=== PATIENT | male | born 1950 | race Caucasian/White ===

== ENCOUNTER 2024-07-30 15:45 | Emergency (ER) | payer OTHER, SELFPAY ==
--- NOTE | 2024-07-30 16:45 | ED.GENMED ---
History of Present Illness
General
Chief Complaint: Skin Problem
Source: patient
Time Seen by Provider: 07/30/24 16:02
History of Present Illness
History of Present Illness:
This patient is a very pleasant 73-year-old male was using a saw and accidentally cut his left index finger on the dorsal aspect. This happened just prior to presentation. He is not up-to-date on his tetanus. He denies numbness, tingling,
suspected foreign body, or other complaints. He denies any other injury
Past History
Past History
ED Past Medical History: Other (BPH, chronic fatigue); Negative HTN
ED Past Surgical History: Tonsilectomy
Social History
Tobacco: Non-smoker
Alcohol: Occasional
Drug: None
Personal: Single
Living: alone
Employment: Employed
Family History
Family History: Other (Noncontributory)
Phy Exam
Physical Exam
Physical Exam:
GENERAL: Alert , in no apparent distress
EYE pupils equal and round
NECK: Supple
ENT: mmm.
CARDIAC: Regular rate and rhythm .
LUNGS: Clear breath sounds bilaterally, no acute respiratory distress, no wheezes/rales/rhonchi
NEUROLOGICAL: Alert and oriented, no focal neuro deficits
SKIN: Warm and dry, There is a 6 cm linear laceration noted dorsal aspect L index finger to level of bone, ?partial extension tendon injury, no joint involvement noted (wound epxlored through from before and s/p dig block). Min bleed. No nail
injury. FROM, incuding extension
MUSCULOSKELETAL: No edema, well perfused.
PSYCH: Normal and appropriate interaction.
Course
Orders/Labs/Results
Orders:
Orders
07/30/24 15:49
CR Finger(s)/thumb Min 2 Vw Lt Urgent
Comment:
Reason For Exam: trauma
Indicate Which Finger:: Index Finger
07/30/24 16:45
Cephalexin Monohydrate [Keflex] 500 mg PO NOW STA
Tetanus/Diphth/Acelpertussis [Adacel] 0.5 ml IM .ONCE ONE
Vital Signs
Initial and Last Documented VS:
Initial Vital Signs
Temp Pulse Resp BP Pulse Ox
98.4 F 62 16 152/83 98
07/30/24 15:47 07/30/24 15:47 07/30/24 15:47 07/30/24 15:47 07/30/24 15:47
Last Documented Vital Signs
Temp Pulse Resp BP Pulse Ox
98.4 F 62 16 152/83 98
07/30/24 15:47 07/30/24 15:47 07/30/24 15:47 07/30/24 15:47 07/30/24 15:47
Procedures
Laceration Closure
Finger:
Status of Wound: clean
Size of Wound in cm: 6
Description of Wound Edges: sharp
Preparation: cleaned with saline
Anesthesia: 1% Lidocaine and Digital-Regional
Revision/Debridement: routine- no revision
Wound exploration: explored to base- no FB
Type of Closure: single layer closure
Skin Closure Material: 5-0 nylon
Number of sutures: 14
Update Note
Update Note:
Patient presents to the Emergency Department with __finger laceration
Number and Complexity of Problems Addressed at the Encounter
� Chronic conditions affecting care:
� Acute Exacerbation and/or Progression of Chronic Illness:
� Differential Diagnosis includes: But not limited to laceration, tendon injury, bony injury, etc. etc.
Amount and/or Complexity of Data to be Reviewed and Analyzed
� I performed an independent evaluation of and my interpretation is:
EKG:
CT:
Xrays:There is a soft tissue swelling along the mid aspect of the index finger with a small fracture along the base of the middle phalanx. There is additional cortical defect along the mid aspect of the proximal phalanx
consistent with nondisplaced fracture.
Laboratory Studies:
Other:
� Review of other/old records reveals:
� Clinical information was obtained by an independent historian:
� Prescriptions/Medications Considered but not given:
� Further testing considered but not performed:
Risk of Complications and/or Morbidity or Mortality of Patient Management
� Social determinants of health affecting care:
� Discussion with other providers (PCP, Hospitalists, Consultants, etc):
� Escalation of care including admission/observation vs risk of discharge considered: Patient aware of suspected fracture, possible tendon injury, importance of wound care, and importance of close follow-up with hand. He has
seen Dr. Suarez in the past and will be referred there. Patient will be started on antibiotics, wound was carefully cleaned. Tetanus will be updated here. Patient placed in full extension with a splint and wound dressed. Case discussed with
Stefanie, photos of open wound sent to him, agrees with plan and assures me patient will be seen within the next 48 hours
ED Attending Note
-
Portions of this chart may have been created with voice recognition software.� Occasional wrong word or��sound alike� substitutions may have occurred due to the inherent limitations of voice recognition software.
Discharge Plan
Departure
Patient Disposition: Home (Routine Discharge)
Date of Disposition: 07/30/24
Time of Disposition: 17:04
Patient with high blood pressure during this ER visit?: Yes
Discharge Problem:
Laceration, Finger fracture, possible tendon injury
Instructions: Tendon Laceration, Stitches - ED discharge instructions, BLOOD PRESSURE, Laceration
Prescriptions:
New
cephalexin 500 mg capsule
500 mg PO QID 7 Days Qty: 28 0RF
acetaminophen-codeine 300-30 mg tablet
1 tab PO BID PRN (Reason: Pain) Qty: 7 0RF
No Action
ketorolac 10 MG tablet
10 mg PO Q6HPRN PRN (Reason: pain) Qty: 8 0RF
Referrals:
Aftab Suarez MD [Active] - Tomorrow
Addy Varma MD [COVERAGE] - Tomorrow
Activity Restrictions/Additional Instructions:
IF YOU DEVELOP REDNESS/WARMTH/DRAINAGE/FEVER/INCREASING PAIN, OR OTHER WORRISOME SIGNS, GO TO THE ER IMMEDIATELY! YOU HAVE A SMALL FRACTURE IN YOUR FINGER WELL, WHICH ALSO REQUIRES ATTENTION. SEE DR SUAREZ OR HIS ASSOCIATE THIS WEEK.
Interventions
Interventions:
*Risk Screen - Suicide Last Done: 07/30/24 15:47
*General Assessment Last Done: 07/30/24 15:47
*Neglect/Abuse Screening Last Done: 07/30/24 15:47
ED-Skin Assessment Last Done: 07/30/24 16:51
Discharge Date and Time
Print Language: SAMOAN
[2024-07-30] MEDS: KEFLEX 500 MG PO (16:55)
[2024-07-30] MEDS: ADACEL 0.5 ML IM (16:57)
== END 2024-07-30 17:15 | disposition home or self-care (01) ==
LOC: EMR 15:45
PROVIDERS: EMERGENCY PHYSICIAN Emergency Medicine; FAMILY PHYSICIAN Family Medicine
DX: S61.211A Laceration without foreign body of left index finger without damage to nail, initial encounter (principal); W27.8XXA Contact with other nonpowered hand tool, initial encounter; Z23 Encounter for immunization; N40.0 Benign prostatic hyperplasia without lower urinary tract symptoms
CPT/HCPCS: 99283; 12002; 90471; 73140; 90715

== ENCOUNTER 2025-01-21 16:40 | Emergency (ER) | payer OTHER, SELFPAY ==
[2025-01-21 16:43] VITALS: BP 129/67
[2025-01-21 17:04] LABS: Hematocrit 42.8 % (39.0-52.0); Hemoglobin 15.3 g/dL (13.0-18.0); Mean Corp Hgb Conc. 35.7 g/dL (33.0-37.0); Mean Corpuscular Volume 86.6 fL (80.0-94.0); Nucleated Red Blood Cells % 0 % (-); Platelet Count 266 10^3/uL (130-400); Red Cell Dist. Width 12.6 % (11.5-14.5)
[2025-01-21 17:24] LABS: ALT (SGPT) 20 U/L (0-50); AST (SGOT) 24 U/L (17-59); Albumin 4.5 g/dl (3.5-5.0); Alkaline Phosphatase 106 U/L (38-126); Blood Urea Nitrogen 20 mg/dl (9-20); Calcium 9.5 mg/dl (8.4-10.2); Carbon Dioxide 21 mmol/L (22-30); Chloride 108 mmol/L (98-107); Glucose 133 mg/dl (70-99); Lipase 154 U/L (23-300); Potassium 4.1 mmol/L (3.5-5.1); Sodium 138 mmol/L (135-145); Total Protein 7.5 g/dl (6.3-8.2); eGFR > 60.00
[2025-01-21] MEDS: TORADOL 15 MG IV (17:48)
[2025-01-21] MEDS: ZOFRAN 4 MG IV (17:49)
[2025-01-21] MEDS: NSS 1000 IV (18:05)
[2025-01-21 18:07] VITALS: BP 132/88
[2025-01-21] MEDS: DILAUDID 0.5 MG IV ×2 (18:12→19:37)
--- NOTE | 2025-01-21 18:40 | ED.GENMED ---
History of Present Illness
General
Chief Complaint: Flank Pain
Source: patient
Exam Limitations: none
Time Seen by Provider: 01/21/25 17:32
Nursing documentation reviewed up to this point in time: agreed with
History of Present Illness
History of Present Illness:
Patient is a healthy 74-year-old male who presents to the emergency department with acute onset left abdominal discomfort about 1.5 hours prior to arrival. Initially�pain seemed to radiate up to his left lower back however he states it is now
located only in his left lower quadrant. He denies any radiation into his groin. He is because the pain is incredibly sharp and stabbing in nature. He has had multiple episodes of nausea and vomiting.
He has not urinated since arriving to the emergency department however earlier today did not notice any dysuria or hematuria. No associated fever, chills, chest pain, or shortness of breath.
Patient believes that he may be passing a kidney stone. He had one many years ago on the right side which felt similar.
No other concerns today.
Past History
Past History
ED Past Medical History: Other (BPH, chronic fatigue); Negative HTN
ED Past Surgical History: Tonsilectomy
Social History
Tobacco: Non-smoker
Alcohol: Occasional
Drug: None
Personal: Single
Living: alone
Employment: Employed
Family History
Family History: Other (Noncontributory)
Review of Systems
Review of Systems
Allergies reviewed?: Yes
All Other Systems: ROS reviewed and negative except as documented in HPI and ROS
Phy Exam
Physical Exam
Physical Exam:
Vitals: Patient's vital signs are stable. Afebrile
General: Patient is moaning and in significant distress on initial evaluation.
Skin: Warm and dry, no rashes or lesions
Head: Normocephalic, atraumatic
Eyes: Sclera nonicteric.
Throat: Protecting airway
Neck: Normal ROM, no cervical spine tenderness, no meningismus
Cardiac: Regular rate and rhythm, no murmurs.
Pulm: Normal respiratory effort, lungs clear
Abdomen: Abdomen soft. Mild tenderness in left lower quadrant. No rebound tenderness or guarding. No CVA tenderness. No rash
Extremities: No evidence of cyanosis or edema
Neuro: AAOx3. Grossly intact.
Psychiatric: Normal affect.
Course
Orders/Labs/Results
Orders:
Orders
01/21/25 16:51
Complete Blood Count/With Diff Urgent
Comprehensive Metabolic Panel Urgent
Lipase Urgent
01/21/25 17:39
Abdomen/Pelvis wo Contrast CT [CT Abd/pelvis Wo Iv Cont] Urgent
Comment:
Reason For Exam: left inguinal pain
0.9% Sodium Chloride 1000 ml [Nss] 1,000 ml IV BOLUS
Ketorolac [Toradol] 15 mg IV NOW STA
Ondansetron Injectable [Zofran] 4 mg IV NOW STA
01/21/25 18:10
HYDROmorphone [Dilaudid] 0.5 mg IV NOW STA
01/21/25 19:14
Urinalysis Reflex To Culture Urgent
Date Specimen was Collected: 01/21/25
Time Specimen was Collected: 16:50
Urine Microscopic Reflex Cult Urgent
Urine Culture Urgent
HENRY Source: U
Specimen Description:
Date Specimen was Collected: 01/21/25
Time Specimen was Collected: 16:50
01/21/25 19:28
HYDROmorphone [Dilaudid] 0.5 mg IV NOW STA
01/21/25 21:51
Oxycodone [Roxicodone] 5 mg PO NOW STA
Abnormal Lab Results
01/21/25 01/21/25
16:51 19:14
Absolute Monos (auto) 0.8 H 10^3/uL
(0.1-0.6)
Chloride 108 H mmol/L
(98-107)
Carbon Dioxide 21 L mmol/L
(22-30)
Glucose 133 H mg/dl
(70-99)
Urine Ketones 2+ A
(Negative)
Ur Occult Blood Reflex 4+ A
(Negative)
Leukocyte Esterase Rfl 1+ A
(Negative)
Urine RBC 80-90 A /HPF
(0-2)
Urine Bacteria (Reflex) Many A
(Negative)
Urine Albumin (Reflex) 2+ A
(Neg - Trace)
01/21/25 16:51
01/21/25 16:51
Vital Signs
Initial and Last Documented VS:
Initial Vital Signs
Temp Pulse Resp BP Pulse Ox
97.9 F 57 18 129/67 100
01/21/25 16:43 01/21/25 16:43 01/21/25 16:43 01/21/25 16:43 01/21/25 16:43
Last Documented Vital Signs
Temp Pulse Resp BP Pulse Ox
97.7 F 57 18 105/76 96
01/21/25 18:58 01/21/25 16:43 01/21/25 16:43 01/21/25 21:00 01/21/25 21:01
MDM/Problems Addressed
Differential Diagnosis Includes:
Not limited to: Renal colic, pyelonephritis, muscle strain/spasm, diverticulitis, etc.
MDM/Problems Addressed:
74-year-old male with acute onset left abdominal pain associated with nausea, vomiting. No chest pain, shortness of breath, fever, or urinary symptoms. Vitals and physical exam as above.
Clinical picture suspicious for likely renal colic. Do not suspect vascular process.
ED plan: labs, UA, CT scan abdomen/pelvis without contrast. Will treat pain, give IV fluids, Zofran, and reassess.
Update: labs reviewed without any clinically significant abnormalities. No leukocytosis. Chemistry unremarkable. CT scan reveals a 6 mm stone in left distal ureter with mild hydro. He has required a few dose of IV pain medication however at this
time is much more comfortable.
UA without findings of infection.
I discussed case with urology production cost estimator, Dr. Robins. I reviewed UA with urology who agrees with plan for discharge home with trial of passage of stone outpatient. No indication for antibiotics at this time.
Strict return precaution discussed including infectious symptoms, intractable pain. He will follow up with urology outpatient. Patient comfortable w/plan.
Chronic conditions affecting care:
N/A
Acute Exacerbation and/or Progression of Chronic Illness:
N/A
*Radiology
Radiology exam reviewed: radiology read reviewed
*Pulse Oximetry
SaO2: 100
Oxygen Mode of Delivery: Room air
Patient hypoxic: no
*EKG
Interpreted by ED Provider?: NA
*Pile Driver Interpretation
Rate: Pile Driver- N/A
*Critical Care Note
Total Time (30-74mins, 75-104mins- exclusive of procedures): Not Applicable
ED Attending Note
-
Portions of this chart may have been created with voice recognition software.� Occasional wrong word or��sound alike� substitutions may have occurred due to the inherent limitations of voice recognition software.
Discharge Plan
Departure
Patient Disposition: Home (Routine Discharge)
Date of Disposition: 01/21/25
Time of Disposition: 21:30
Patient with high blood pressure during this ER visit?: No
Condition: Good
Discharge Problem:
Calculus of distal left ureter
Instructions: Kidney Stones (DC)
Prescriptions:
New
oxycodone 5 mg tablet
5 mg PO Q6H PRN (Reason: Pain) Qty: 7 0RF
ondansetron 4 mg tablet,disintegrating
4 mg PO Q8H PRN (Reason: nausea and vomiting) Qty: 7 0RF
No Action
ketorolac 10 MG tablet
10 mg PO Q6HPRN PRN (Reason: pain) Qty: 8 0RF
cephalexin 500 mg capsule
500 mg PO QID 7 Days Qty: 28 0RF
acetaminophen-codeine 300-30 mg tablet
1 tab PO BID PRN (Reason: Pain) Qty: 7 0RF
Referrals:
Mark Horne MD [Family Provider, Family Practice]
Celestine Robins MD [Active, Urology] - Next open appointment
Activity Restrictions/Additional Instructions:
RETURN TO THE EMERGENCY DEPARTMENT ANY FEVER, CHILLS, INTRACTABLE PAIN, INTRACTABLE NAUSEA/VOMITING, INABILITY TO URINATE, WORSENING IN CURRENT SYMPTOMS, OR ANY OTHER CONCERNS
- As discussed�your CT scan showed a 6 mm stone in your left distal ureter.
- You can take 600 mg of ibuprofen every 6-8 hours as needed for pain. For intractable pain�you can take oxycodone. Be aware that this may cause drowsiness you should not take prior to driving.
- It is important you stay well-hydrated. Continue to take your Flomax daily. You should strain your urine.
- Follow-up with urology for further evaluation/management to ensure that your symptoms are improving
Monitor your symptoms closely and return to the emergency department with any acute worsening/new symptoms or any signs of infection
Interventions
Interventions:
*Risk Screen - Suicide Last Done: 01/21/25 16:46
*General Assessment Last Done: 01/21/25 19:30
*Neglect/Abuse Screening Last Done: 01/21/25 16:46
*Nursing Disposition Last Done: 01/21/25 21:33
AG-Syfxga-Sxscvonsyr Assessment Last Done: 01/21/25 18:16
ED-Male Genitourinary Assessment Last Done: 01/21/25 18:16
Discharge Date and Time
Discharge Date/Time: 01/21/25 21:33
Print Language: [place] CITIZ[place]
[2025-01-21 19:24] LABS: Urine Character Clear (Clear)
[2025-01-21 19:30] LABS: Urine Squamous Cell 0-2 /LPF (Few)
[2025-01-21 19:31] LABS: Urine Red Blood Cell 80-90 /HPF (0-2)
[2025-01-21 19:35] VITALS: BP 137/86
[2025-01-21 20:00] VITALS: BP 127/72
[2025-01-21 21:00] VITALS: BP 105/76
[2025-01-21] MEDS: ROXICODONE 5 MG PO (22:08)
== END 2025-01-21 21:33 | disposition home or self-care (01) ==
LOC: EMR 16:40
PROVIDERS: EMERGENCY PHYSICIAN Student in an Organized Health Care Education/Training Program; FAMILY PHYSICIAN Family Medicine
DX: N13.2 Hydronephrosis with renal and ureteral calculous obstruction (principal); N40.0 Benign prostatic hyperplasia without lower urinary tract symptoms; R11.2 Nausea with vomiting, unspecified
CPT/HCPCS: 96374; 96375; 96376; 96361; 99284; 74176; 80053; 81003; 81015; 83690; 85025; 87086

== ENCOUNTER 2025-01-26 21:56 | Emergency (ER) | payer OTHER, SELFPAY ==
[2025-01-26 21:59] VITALS: BP 138/73
[2025-01-26 22:23] VITALS: BP 130/71
[2025-01-26 22:25] VITALS: BMI 23.1
--- NOTE | 2025-01-26 22:42 | ED.GENMED ---
History of Present Illness
General
Chief Complaint: Flank Pain
Source: patient
Time Seen by Provider: 01/26/25 22:29
History of Present Illness
History of Present Illness:
74-year-old male presents to the emergency room complaining of left flank pain. Patient was seen here in the emergency room 5 days ago for abdominal pain and found to have a distal left ureteral stone that was 6 mm in size. Patient has followed up
with urology since then. The decision was made to allow time for the stone to pass without intervention. Patient states the pain he was experiencing tonight was more significant in the back than what he had before. No fever or chills. No
hematuria. He does not believe he passed the stone though he has seen some tiny particles that he thought were part of the stone. Patient took such 100 mg of ibuprofen at 4 PM with mild relief of his discomfort but the pain is coming back now.
Past History
Past History
ED Past Medical History: Other (BPH, chronic fatigue); Negative HTN
ED Past Surgical History: Tonsilectomy
Social History
Tobacco: Non-smoker
Alcohol: Occasional
Drug: None
Personal: Single
Living: alone
Employment: Employed
Family History
Family History: Other (Noncontributory)
Phy Exam
Physical Exam
Physical Exam:
General: Awake, Alert, Oriented X3. No acute distress.
Vitals: unremarkable
Head: Atraumatic
Eyes: Pupils equal, EOMI
Throat: Airway intact, no exudates
Neck: Trachea midline
Lungs: Clear and equal b/l
Heart: Regular rate, no murmurs
Abd: Soft, Nontender, No pulsatile mass
Back: Mild left CVA tenderness to percussion
Neuro: Nonfocal
Skin: Warm, dry, no rash
Extremities: pulses equal b/l, no edema
Course
Orders/Labs/Results
Orders:
Orders
01/26/25 22:41
Ketorolac [Toradol] 15 mg IV NOW STA
CR Abdomen - 1 View Urgent
Comment:
Reason For Exam: eval of previously seen L ureteral stone
01/26/25 23:00
Basic Metabolic Panel Urgent
Complete Blood Count/With Diff Urgent
01/26/25 23:15
Urinalysis Reflex To Culture Urgent
Date Specimen was Collected: 01/26/25
Time Specimen was Collected: 23:13
01/27/25 00:01
Oxycodone [Roxicodone] 5 mg PO NOW STA
Abnormal Lab Results
01/26/25
23:00
Absolute Monos (auto) 1.0 H 10^3/uL
(0.1-0.6)
Lymphocytes % 17.5 L %
(20.5-51.1)
Monocytes % 11.2 H %
(1.7-9.3)
01/26/25 23:00
01/26/25 23:00
Vital Signs
Initial and Last Documented VS:
Initial Vital Signs
Temp Pulse Resp BP Pulse Ox
97.5 F 64 18 138/73 98
01/26/25 21:59 01/26/25 21:59 01/26/25 21:59 01/26/25 21:59 01/26/25 21:59
Last Documented Vital Signs
Temp Pulse Resp BP Pulse Ox
97.5 F 65 15 130/71 98
01/26/25 21:59 01/26/25 23:45 01/26/25 23:45 01/26/25 22:23 01/26/25 22:45
MDM/Problems Addressed
Differential Diagnosis Includes:
Renal colic, diverticulitis, UTI
MDM/Problems Addressed:
Patient presents with left flank pain left abdominal pain. Recently diagnosed with a kidney stone. Labs are unremarkable. Patient is afebrile. His abdominal exam is benign. Flatplate obtained and I do not see the stone but it may be obstructed
by bowel gas. Overall presentation seems most consistent with continued pain from known ureteral calculus. Continue to [facility]. Follow-up with urology.
*Radiology
Radiology exam reviewed: preliminary read by ED provider (No acute abnormality noted on flatplate, no definitive stone seen)
*Pulse Oximetry
SaO2: 98
Oxygen Mode of Delivery: Room air
Patient hypoxic: no
*Critical Care Note
Total Time (30-74mins, 75-104mins- exclusive of procedures): Not Applicable
ED Attending Note
-
Portions of this chart may have been created with voice recognition software.� Occasional wrong word or��sound alike� substitutions may have occurred due to the inherent limitations of voice recognition software.
Discharge Plan
Departure
Patient Disposition: Home (Routine Discharge)
Date of Disposition: 01/27/25
Time of Disposition: 00:01
Patient with high blood pressure during this ER visit?: No
Condition: Good
Discharge Problem:
Acute flank pain, Kidney stone on left side
Instructions: Renal Colic (DC), BLOOD PRESSURE
Prescriptions:
New
oxycodone 5 mg tablet
5 mg PO Q6H PRN (Reason: Pain) Qty: 12 0RF
No Action
ketorolac 10 MG tablet
10 mg PO Q6HPRN PRN (Reason: pain) Qty: 8 0RF
cephalexin 500 mg capsule
500 mg PO QID 7 Days Qty: 28 0RF
acetaminophen-codeine 300-30 mg tablet
1 tab PO BID PRN (Reason: Pain) Qty: 7 0RF
oxycodone 5 mg tablet
5 mg PO Q6H PRN (Reason: Pain) Qty: 7 0RF
ondansetron 4 mg tablet,disintegrating
4 mg PO Q8H PRN (Reason: nausea and vomiting) Qty: 7 0RF
Referrals:
Mark Horne MD [Family Provider, Family Practice]
eClestine Robins MD [Active, Urology]
Activity Restrictions/Additional Instructions:
Follow-up with urology as scheduled. Return to the emergency room if you develop a fever prior to passing the stone.
Interventions
Interventions:
*Risk Screen - Suicide Last Done: 01/26/25 22:00
*General Assessment Last Done: 01/26/25 22:00
*Neglect/Abuse Screening Last Done: 01/26/25 22:00
*ED- Fall Risk Assessment Last Done: 01/26/25 22:23
*ED COVID-19 Vaccine History Last Done: 01/26/25 22:00
*ED Influenza Vaccine History Last Done: 01/26/25 22:00
*Nursing Disposition Last Done: 01/27/25 00:10
DT-Gcxzkv-Kduynzhihe Assessment Last Done: 01/26/25 22:23
ED-Male Genitourinary Assessment Last Done: 01/26/25 22:23
Discharge Date and Time
Discharge Date/Time: 01/27/25 00:13
Print Language: WELSH
[2025-01-26] MEDS: TORADOL 15 MG IV (23:04)
[2025-01-26 23:16] LABS: Hematocrit 42.6 % (39.0-52.0); Hemoglobin 14.6 g/dL (13.0-18.0); Mean Corp Hgb Conc. 34.3 g/dL (33.0-37.0); Mean Corpuscular Volume 87.7 fL (80.0-94.0); Nucleated Red Blood Cells % 0 % (-); Platelet Count 222 10^3/uL (130-400); Red Cell Dist. Width 12.6 % (11.5-14.5)
[2025-01-26 23:21] LABS: Urine Character Clear (Clear)
[2025-01-26 23:37] LABS: Blood Urea Nitrogen 18 mg/dl (9-20); Calcium 9.0 mg/dl (8.4-10.2); Carbon Dioxide 27 mmol/L (22-30); Chloride 105 mmol/L (98-107); Estimated Creatinine Clearance 75 ml/min; Glucose 92 mg/dl (70-99); Potassium 3.9 mmol/L (3.5-5.1); Sodium 139 mmol/L (135-145); eGFR > 60.00
[2025-01-27] MEDS: ROXICODONE 5 MG PO (00:05)
== END 2025-01-27 00:13 | disposition home or self-care (01) ==
LOC: EMR 21:56
PROVIDERS: EMERGENCY PHYSICIAN Emergency Medicine; FAMILY PHYSICIAN Family Medicine
DX: N20.2 Calculus of kidney with calculus of ureter (principal); N40.0 Benign prostatic hyperplasia without lower urinary tract symptoms; R53.82 Chronic fatigue, unspecified
CPT/HCPCS: 99284; 96374; 74018; 80048; 81003; 85025